=== PATIENT | male | born 1970 | race Caucasian/White ===

== ENCOUNTER 2019-03-07 12:49 | Emergency (ER) | payer OTHER ==
--- NOTE | 2019-03-07 13:09 | UC ---
Dental HPI - HPI Summary HPI Summary: 49-year-old male presents with 4-5 day history of left lower dental pain. States he has a tooth that has become infected in the past and he knows needs to be extracted. Does not have a dentist appointment scheduled at this time. Denies fever, chills, trismus, dysphagia, or difficulty breathing. - History of Current Complaint Stated Complaint: DENTAL PAIN Time Seen by Provider: 03/07/19 13:07 Hx Obtained From: Patient - Allergies/Home Medications Allergies/Adverse Reactions: Allergies Allergy/AdvReac Type Severity Reaction Status Date / Time No Known Allergies Allergy Verified 03/07/19 13:08 Home Medications: Home Medications Acetaminophen [Tylenol Extra Strength] 1,000 mg PO ONCE PRN 03/07/19 [History Confirmed 03/07/19] Lisinopril TAB* [Prinivil TAB*] 20 mg PO DAILY 03/07/19 [History Confirmed 03/07] PMH/Surg Hx/FS Hx/Imm Hx Cardiovascular History: Hypertension - Family History Known Family History: Positive: Non-Contributory - Social History Occupation: Employed Full-time Lives: Alone Review of Systems All Other Systems Reviewed And Are Negative: Yes Constitutional: Negative: Fever, Chills ENT: Positive: Dental Pain Respiratory: Positive: Negative Cardiovascular: Positive: Negative Gastrointestinal: Positive: Negative Musculoskeletal: Positive: Negative Neurological: Positive: Negative Is Patient Immunocompromised?: No Physical Exam - Summary Physical Exam Summary: GENERAL APPEARANCE: Well developed, well nourished, alert and cooperative, and appears to be in no acute distress. HEAD: Mild facial swelling to left mandible. THROAT: Pharynx normal. No tonsilar inflammation, swelling, exudate, or lesions. Uvula midline. Significant decay to his left first molar (#19) with gingival erythema without induration or fluctuance. No trismus. NECK: Neck supple, non-tender without lymphadenopathy. CARDIAC: Normal S1 and S2. No S3, S4 or murmurs. Rhythm is regular. There is no peripheral edema, cyanosis or pallor. Extremities are warm and well perfused. Capillary refill is less than 2 seconds. Peripheral pulses intact. LUNGS: Clear to auscultation without rales, rhonchi, wheezing or diminished breath sounds. ABDOMEN: Positive bowel sounds. Soft, nondistended, nontender. No guarding or rebound. No masses or hepatosplenomegally. MUSKULOSKELETAL: ROM intact to all extremities. No joint erythema or tenderness. Normal muscular development. Normal gait. SKIN: Skin normal color, texture and turgor with no lesions or eruptions. Triage Information Reviewed: Yes Vital Signs Reviewed: Yes Dental Complaint Course/Dx - Course Course Of Treatment: 49-year-old male presents with 4-5 day history of left lower dental pain. States he has a tooth that has become infected in the past and he knows needs to be extracted. Does not have a dentist appointment scheduled at this time. Denies fever, chills, trismus, dysphagia, or difficulty breathing. Afebrile. Hypertensive however patient states that he has missed his blood pressure medication for the past couple of days. Vital signs otherwise stable. Exam revealed significant decay to his left first molar (#19) with gingival erythema without induration or fluctuance, mild facial swelling over the left mandible, but otherwise unremarkable. Will treat him with Augmentin 875 mg twice a day 10 days for dental infection. Recommend [id number] analgesics for pain. He is to schedule an appointment with his dentist at next available. Anticipatory guidance warning symptoms are reviewed with the patient. Verbalizes understanding and agrees with plan of care. - Differential Dx/Diagnosis Differential Diagnosis/Dx: Dental Abscess, Dental Caries, Fractured Tooth, Odontogenic Pain, Peridontic Disease Provider Diagnosis: Pain, dental Discharge - Sign-Out/Discharge Documenting (check all that apply): Patient Departure All imaging exams completed and their final reports reviewed: No Studies - Discharge Plan Condition: Stable Disposition: HOME Prescriptions: Amoxicillin/Clavulanate TAB* [Augmentin TAB 875*] 875 mg PO BID #20 tab Patient Education Materials: Toothache (ED) Referrals: No Primary Care Phys,NOPCP [Primary Care Provider] - Additional Instructions: Start Augmentin 875 mg 1 tab twice a day for 10 days. Take with food to avoid upset stomach. Be sure to finish entire course even if feeling better. Take acetaminophen (Tylenol) or ibuprofen (Advil, Motrin) according to directions as needed for pain. Be sure to rinse your mouth out with a warm salt water solution after every time you eat to remove any debris. Make an appointment with your dentist at next available appointment. Seek immediate medical attention in the emergency room if you develop fever greater than 100.5 F, you are unable to open of close your mouth, are unable to swallow, have difficulty breathing, or any worsening of symptoms. - Billing Disposition and Condition Condition: STABLE Disposition: Home
[2019-03-07 13:27] VITALS: BP 162/108
== END 2019-03-07 13:30 | disposition home or self-care (01) ==
LOC: UCCORT 12:49
DX: K08.89 Other specified disorders of teeth and supporting structures (principal); I10 Essential (primary) hypertension
CPT/HCPCS: 99202; G0463